=== PATIENT | female | born 1955 | race Caucasian/White ===

== ENCOUNTER 2017-11-17 12:10 | Emergency (ER) | payer OTHER ==
[~2017-11-17] VITALS: Ht 152.4 cm; Wt 83.9 kg
--- NOTE | 2017-11-17 13:40 | CT SCAN REPORT ---
EXAMINATION: CT HEAD WITHOUT CONTRAST CT CERVICAL SPINE WITHOUT CONTRAST CLINICAL INFORMATION: Status post fall onto head. COMPARISON: None. TECHNIQUE: Contiguous axial imaging was performed from the skullbase to vertex without intravenous administration of contrast. Multidetector helical imaging was performed through the cervical spine. DLP: 912.92 mGy-cm. FINDINGS: HEAD: There is no evidence of acute intracranial hemorrhage or territorial infarction. No abnormal mass effect or midline shift is seen. Hook to white matter differentiation is well preserved. No extra-axial fluid collections are identified. The ventricles are normal in size. Brain parenchymal attenuation is normal. The osseous structures and soft tissues are normal. The mastoid air cells and visualized portions of the paranasal sinuses are well aerated. CERVICAL SPINE: No acute fracture or dislocation is identified in the cervical spine. There is moderate disc space narrowing with endplate osteophyte formation from the C4-C6 levels. Multilevel hypertrophic facet arthropathy also present contributing to foraminal narrowing. The atlantoaxial articulation is normally maintained. The paraspinal soft tissues are normal. The lung apices are clear. IMPRESSION: 1. No acute intracranial pathology. 2. No evidence of acute cervical spine traumatic injury. Moderate cervical spondylosis.
--- NOTE | 2017-11-17 13:52 | ED GENERAL ADULT ---
History of Present Illness General Chief Complaint: Fall Stated Complaint: FELL YESTERDAY NOW C/ DIZZINESS, Source: patient Exam Limitations: no limitations Vital Signs & Intake/Output Vital Signs & Intake/Output Vital Signs Date Time Temp Pulse Resp B/P B/P Pulse O2 O2 Flow FiO2 Mean Ox Delivery Rate 11/17 1506 98.2 62 18 144/70 99 Room Air 11/17 1215 97.0 70 20 133/80 97 Room Air Allergies Coded Allergies: Penicillins (SHORTNESS OF BREATH 11/17/17) ciprofloxacin (From CIPRO) (PEELING 11/17/17) clarithromycin (From BIAXIN) (ITCHING 11/17/17) Reconcile Medications Amlodipine Besylate 5 MG TABLET 1 TAB PO DAILY HTN (Reported) Liraglutide (Victoza 3-Yonathan) 0.6 MG/0.1 ML (18 MG/3 ML) PEN.INJCTR DM (Reported) Losartan Potassium 100 MG TABLET 1 TAB PO DAILY HTN (Reported) Naproxen (Naprosyn) 500 MG TABLET 1 TAB PO BID PRN pain or HOLLAND Ondansetron (Zofran Odt) 4 MG TAB.RAPDIS 1 TAB SL TID PRN nausea Sertraline HCl 100 MG TABLET 1 TAB PO DAILY DEPRESSION (Reported) Triage Note: PT TO ED C/O HEADACHE, DIZZINESS S/P HEADSTRIKE YESTERDAY. DENIES LOC. C/O B/L KNEE PAIN, UPPER BACK PAIN. PT FELL OUT OF A CHAIR AT WORK YESTERDAY. DENIES BEING ON BLOOD THINNERS. UNSURE IF IT WILL BE WORKMANS COMP. Triage Nurses Notes Reviewed? yes Onset: Abrupt Duration: day(s): Timing: single episode yesterday HPI: 61 y/o female with h/o HTN, diabetes, and depression presenting with HOLLAND, back pain, and knee pain s/p mechancial fall yesterday. Reports she went to sit down in a chair at work, but missed the chair and fell forward, striking the front of her head on the grounf. Denies LOC. Not in any anticoagulation. Has had a headache since this head strike, and is associated with lightheadedness and nausea. Denies visual changes or vomiting. Patient also complaining of pain to her upper back and bilateral knees since the fall, but denies direct injury to them during the fall. Has been using ibuprofen with mild relief. Denies numbness or paresthesias. (Yomaira Stevenson) Past History Travel History Traveled to [place] past 21 day No Medical History Any Pertinent Medical History? see below for history Cardiovascular: hypertension Psychiatric: depression Endocrine: diabetes Surgical History Surgical History: non-contributory Psychosocial History What is your primary language Vietnamese Tobacco Use: Quit >30 days ago ETOH Use: denies use Illicit Drug Use: denies illicit drug use Family History Hx Contributory? No (Yomaira Stevenson) Review of Systems Review of Systems Constitutional: Reports: no symptoms. EENTM: Reports: no symptoms. Respiratory: Reports: no symptoms. Cardiovascular: Reports: no symptoms. GI: Reports: no symptoms. Genitourinary: Reports: no symptoms. Musculoskeletal: Reports: see HPI. Skin: Reports: no symptoms. Neurological/Psychological: Reports: see HPI. Hematologic/Endocrine: Reports: no symptoms. Immunologic/Allergic: Reports: no symptoms. All Other Systems: Reviewed and Negative (Yomaira Stevenson) Physical Exam Physical Exam General Appearance: well developed/nourished, no apparent distress, alert, awake , comfortable Head: atraumatic, normal appearance Eyes: Bilateral: normal appearance, PERRL, EOMI. Ears, Nose, Throat: normal ENT inspection Neck: normal inspection, full range of motion, no midline tenderness Respiratory: normal breath sounds, chest non-tender, lungs clear Cardiovascular: regular rate/rhythm Gastrointestinal: soft, non-tender Back: normal inspection, normal range of motion, vertebral tenderness (lower thoracic/upper lumbar) Extremities: normal inspection, normal range of motion, no evidence of trauma to knees, unrestricted ROM, no knee instability, BLE's are NV intact, able to bear weight and ambulate. Neurologic/Psych: awake, alert, oriented x 3, normal gait, normal mood/affect Skin: intact, normal color, warm/dry Core Measures ACS in differential dx? No CVA/TIA Diagnosis: No Sepsis Present: No Sepsis Focused Exam Completed? No (Yomaira Stevenson) Progress Differential Diagnoses I considered the following diagnoses in my evaluation of the patient: [Head contusion versus concussion versus ICH versus cranial fracture versus vertebral fracture, likely with knee contusions, low concern for any fracture] Plan of Care: Orders Procedure Date/time Status XRY-THORACOLUMBAR SPINE 11/17 1421 Active Current Medications Sig/Darcie Start time Last Medication Dose Stop Time Status Admin Acetaminophen 650 MG ONCE ONE 11/17 1429 AC (Tylenol) 11/17 143 Ketorolac 60 MG ONCE ONE 11/17 1429 AC Tromethamine 11/17 1430 (Toradol) Ondansetron HCl 4 MG ONCE ONE 11/17 1429 AC (Zofran) 11/[address] head and C-spine unremarkable Likely with concussion Patient has benign knee exam, low concern for fracture, no indication for any x- rays at this time Thoracolumbar x-ray was negative for fracture Patient reports significant pain relief in her headache and back pain after Toradol and Tylenol. Given Rx naproxen as needed for pain, and Zofran as needed for nausea Counseled on supportive care, will follow up with her PMD, and given strict return precautions Initial ED EKG: none (Yomaira Stevenson) Departure Departure Disposition: HOME OR SELF CARE Condition: Stable Clinical Impression Primary Impression: Headache Secondary Impressions: Back pain, Fall, Knee pain Referrals: Kellen Erwin MD (PCP/Family) Additional Instructions: Use naproxen as needed for headaches or other pain. Use Zofran as needed for nausea. Follow-up with your primary care provider for reevaluation. Return to the emergency department for any new or worsening symptoms. Departure Forms: Customer Survey General Discharge Information Prescriptions: Current Visit Scripts Naproxen (Naprosyn) 1 TAB PO BID PRN pain or HOLLAND #60 TAB Ondansetron (Zofran Odt) 1 TAB SL TID PRN nausea #20 TAB (Yomaira Stevenson) PA/RPG PROGRAMMER ANALYST Co-Sign Statement Statement: ED Attending supervision documentation- [] I saw and evaluated the patient. I have also reviewed all the pertinent lab results and diagnostic results. I agree with the findings and the plan of care as documented in the PA's/RPG PROGRAMMER ANALYST's documentation. [x] I have reviewed the ED Record and agree with the PA's/RPG PROGRAMMER ANALYST's documentation. [] Additions or exceptions (if any) to the PAs/RPG PROGRAMMER ANALYST's note and plan are summarized below: [] (Dallin Reardon DO) Critical Care Note Critical Care Note Critical Care Time: non-applicable (Yomaira Stevenson)
[2017-11-17] MEDS ORDERED: NAPROSYN500 M1 PO (14:27)
[2017-11-17] MEDS ORDERED: ZOFRAN ODT4 M1 SL (14:27)
[2017-11-17] MEDS ORDERED: SERTRALINE HCL100 MG PO (14:28)
[2017-11-17] MEDS ORDERED: AMLODIPINE BESYL5 M1 PO (14:29)
[2017-11-17] MEDS ORDERED: LOSARTAN POTAS100 M1 PO (14:29)
[2017-11-17] MEDS ORDERED: VICTOZA 3-0.6 MG/0.1 (14:30)
[2017-11-17 15:06] VITALS: BP 144/70
--- NOTE | 2017-11-17 15:45 | RADIOLOGY REPORT ---
EXAMINATION: XR THORACOLUMBAR SPINE CLINICAL INFORMATION: Midline tenderness to palpation COMPARISON: None TECHNIQUE: 2 views of the thoracolumbar spine were obtained. FINDINGS: No acute thoracic spine fracture is identified. Multilevel degenerative disc disease with spurring and fusion anterior longitudinal ligament present. No abnormal paraspinal line bulge is seen. Pedicles are intact. IMPRESSION: No acute fracture thoracolumbar spine. Spondylosis.
== END 2017-11-17 16:10 ==
LOC: ERH 12:10
DX: R51 Headache (principal); M25.561 Pain in right knee; M25.562 Pain in left knee; M54.9 Dorsalgia, unspecified
CPT/HCPCS: 72080; 96372; J1885; J3101